=== PATIENT | male | born 1965 | race African-American/Black ===

== ENCOUNTER 2018-05-17 10:05 | Emergency (ER) | payer SELFPAY | END 2018-05-17 11:09 | disposition home or self-care (01) | LOC: ERS 10:05 | DX: H61.23 Impacted cerumen, bilateral (principal); I10 Essential (primary) hypertension; F17.210 Nicotine dependence, cigarettes, uncomplicated; Z79.899 Other long term (current) drug therapy | CPT/HCPCS: 99282 ==

== ENCOUNTER 2019-02-03 09:54 | Outpatient (CLI) | payer OTHER ==
--- NOTE | 2019-02-03 11:09 | RAD ---
LEFT HAND TWO VIEWS: HISTORY: Disability evaluation. FINDINGS: Mild DJD at the first carpometacarpal. Mild DJD at the radial carpal. Minimal DJD at the MCP joints . Mild DJD at the tip joints with minimal spurring seen dorsally. IMPRESSION: Mild degenerative changes are seen, as described. POS: OFF
== END 2019-02-03 09:55 | disposition home or self-care (01) ==
LOC: BICRAD 09:54
PROVIDERS: ATTEND Internal Medicine
DX: Z02.71 Encounter for disability determination (principal); M19.042 Primary osteoarthritis, left hand